=== PATIENT | male | born 1990 | race Caucasian/White ===

== ENCOUNTER 2020-09-24 07:41 | Outpatient (CLI) | payer OTHER, SELFPAY ==
--- NOTE | 2020-10-28 15:46 | WPDHOMESLEEP ---
Sleep Study - Home Unattended Date of Study: 09/24/20 Ordering Provider: Gigi Ojeda MD Interpreting Physician: Josefina Garnett MD Home Sleep Study Type: Apnea Link Air Height: 1.83 m Weight: 132.449 kg Body Mass Index: 39.6 Neck Circumference (inches): 20 [place]: 8 Reason for Sleep Study Daytime exhaustion, morning headaches, hypertension Sleep History Socrates Knight is a 30 year-old man with non-refreshing sleep. He awakens feeling exhausted. He occasionally has headaches in the morning. This has been going on at least 2 years. His blood pressure has been difficult to control. There is a family history of sleep apnea with his father using a device while sleeping. he frequently snores, frequently loudly enough that others complain. He occasionally awakens at night with heartburn, belching, or coughing. He rarely awakens from sleep feeling short of breath. He occasionally has trouble sleep with a cold. He rarely wakes up gasping for breath at night. He frequently has breathing problems at night reported to him by others. He does not sweat excessively at night or notices his heart pounding or beating irregularly at night. He rarely falls asleep during the day, never involuntarily. He rarely falls asleep while driving. he does not fall asleep during physical effort. He does not have loss of muscle tone with strong emotion. He rarely has daytime difficulties due to excessive sleepiness. He never feels paralyzed on waking or falling asleep. he rarely has vivid dreamlike scenes upon awakening or falling asleep. He is not afraid to go to sleep. he denies having nightmares. He occasionally remembers his dreams. He occasionally has racing thoughts. He rarely feels sad or depressed. He frequently has anxiety. he does not have muscular tension. He rarely notices parts of his body jerking. He does not kick at night. He occasionally has crawling and aching feelings in his legs. He occasionally has leg pain at night. He does not have morning jaw pain. He rarely grinds his teeth during sleep. He rarely is bothered by pain during the day and rarely is awakened by pain at night. He rarely wakes up feeling stiff in the morning. He does not wake up with sore or achy muscles and does not wake up with pain in the neck or spine. He has dizziness, occasional morning headaches, and fatigue. He has gained 10 lb in the last year. Normal bedtime is between 10 and 11:00 p.m. falling asleep in 20 minutes, typically waking 1-2 times at night usually to take care of his baby. Normally he wakes up once at night. He stays awake for 10 minutes or less. Sometimes he goes to the bathroom. Sometimes he rolls over in returns to sleep. He wakes the morning at 6:30 a.m. to 7:00 a.m.. Weekend schedule shows that he stays goes to bed between 10:30 p.m. and midnight, waking in the morning between 7:30 and 8:00 a.m.. He does not take naps. A short nap is not refreshing. He is usually drowsy in the morning for 2 hours or longer. Habits: Never smoked tobacco. Caffeine 8 oz per day. No alcohol or recreational drugs. [facility] Past Medical History Medical History (Updated 10/28/20 @ 16:00 by Josefina Garnett MD) Acid reflux Epilepsy Had brain surgery to correct this. Foot drop Hyperlipidemia Hypertension Surgical History Surgical History History of brain surgery Family History Family History Father Coronary artery disease Acute myocardial infarction Obstructive sleep apnea Mother Hypertension Osteoarthritis Grandparent Diabetes mellitus Social History Social History Smoking status: Never smoker Alcohol intake: current Medications Home Medications Medication Instructions Recorded Confirmed Type atorvastatin 20 mg tablet 20 mg PO DAILY 08/23/20 Histo
[2020-10-28 16:03] VITALS: BMI 39.6
== END 2020-09-24 07:42 | disposition home or self-care (01) ==
LOC: ANHCSM 07:42
PROVIDERS: PCP Pediatrics; Visit Provider Internal Medicine Critical Care Medicine
DX: G47.33 Obstructive sleep apnea (adult) (pediatric) (principal)
CPT/HCPCS: 95806